=== PATIENT | female | born 1935 | race Caucasian/White ===

== ENCOUNTER → 2023-12-30 10:38 | Outpatient (REF) | payer OTHER, SELFPAY | LOC: HWRAD 10:38 | PROVIDERS: ATTENDING PHYSICIAN Internal Medicine Geriatric Medicine; FAMILY PHYSICIAN Internal Medicine Geriatric Medicine | DX: M54.50 Low back pain, unspecified (principal); C34.12 Malignant neoplasm of upper lobe, left bronchus or lung; Z85.3 Personal history of malignant neoplasm of breast | CPT/HCPCS: 72100; 72190 ==

== ENCOUNTER 2024-04-17 15:24 | Emergency (ER) | payer OTHER, SELFPAY ==
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
[2024-04-17 15:35] VITALS: BP 144/83
[2024-04-17] MEDS: MOTRIN 400 MG PO (17:15)
[2024-04-17 17:16] VITALS: BP 151/63
== END 2024-04-17 17:27 | disposition home or self-care (01) ==
LOC: EMR 15:24
PROVIDERS: EMERGENCY PHYSICIAN Emergency Medicine; FAMILY PHYSICIAN Internal Medicine Geriatric Medicine
DX: S20.211A Contusion of right front wall of thorax, initial encounter (principal); V49.40XA Driver injured in collision with unspecified motor vehicles in traffic accident, initial encounter; E78.00 Pure hypercholesterolemia, unspecified; I10 Essential (primary) hypertension; Z87.891 Personal history of nicotine dependence
CPT/HCPCS: 99283; 71046